=== PATIENT | male | born 1945 | race Caucasian/White ===

== ENCOUNTER → 2020-03-15 | Outpatient (CLI) | payer MEDICARE ==
[2020-03-20 13:06] LABS: M-SPIKE, % Not Observed % (Not Observed); PROTEIN,TOTAL,URINE <4.0 mg/dL (Not Estab.)
== END | disposition home or self-care (01) ==
LOC: LAB SHORT 14:26 → LAB 14:26
PROVIDERS: Internal Medicine
DX: R79.89 Other specified abnormal findings of blood chemistry (principal)
CPT/HCPCS: 81050; 84166; 86335

== ENCOUNTER → 2020-04-26 | Outpatient (CLI) | payer MEDICARE ==
[2020-04-27 13:38] LABS: Stool Occult Blood Guaiac 1 Neg (Neg); Stool Occult Blood Guaiac 2 Neg (Neg)
[2020-04-27 13:39] LABS: Stool Occult Blood Guaiac 3 Neg (Neg)
== END | disposition home or self-care (01) ==
LOC: LAB 13:33 → LAB SHORT 13:33 → LAB FUT 04-21 10:30
PROVIDERS: Internal Medicine
DX: D50.9 Iron deficiency anemia, unspecified (principal)
CPT/HCPCS: 82270

== ENCOUNTER → 2024-11-11 | Outpatient (CLI) | payer MEDICARE ==
[2024-11-12 11:17] LABS: Stool Occult Blood Guaiac 1 Neg (Neg)
[2024-11-12 11:18] LABS: Stool Occult Blood Guaiac 2 Neg (Neg)
[2024-11-12 11:19] LABS: Stool Occult Blood Guaiac 3 Neg (Neg)
== END ==
LOC: LAB SHORT 11:58 → LAB 11:58 → LAB FUT 11-05 11:15
PROVIDERS: Internal Medicine
DX: D64.9 Anemia, unspecified (principal)
CPT/HCPCS: 82272

== ENCOUNTER 2025-07-15 10:47 | Inpatient (IN) | payer MEDICARE ==
[~2025-07-15] VITALS: Ht 170.2 cm; Wt 65.8 kg
[2025-07-15 11:59] LABS: BASOPHILS ABSOLUTE AUTO 0.03 K/mm3 (0.00-0.23); BASOPHILS PERCENT AUTO 0 % (0-2); EOSINOPHILS ABSOLUTE AUTO 0.00 K/mm3 (0.00-0.68); EOSINOPHILS PERCENT AUTO 0 % (0-6); Hematocrit 28.5 % (37.0-53.0); Hemoglobin 9.5 g/dL (13.5-17.5); IMMATURE GRAN ABSOLUTE AUTO 0.03 K/mm3 (0.00-0.10); IMMATURE GRAN PERCENT AUTO 0 % (0-1); LYMPHOCYTES ABSOLUTE AUTO 0.56 K/mm3 (0.84-5.20); LYMPHOCYTES PERCENT AUTO 5 % (21-46); MONOCYTES ABSOLUTE AUTO 1.49 K/mm3 (0.16-1.47); MONOCYTES PERCENT AUTO 13 % (4-13); Mean Corpuscular HGB Conc 33.3 g/dL (31.5-36.5); Mean Corpuscular Volume 89 fL (80-100); NEUTROPHILS ABSOLUTE AUTO 9.74 K/mm3 (1.96-9.15); NEUTROPHILS PERCENT AUTO 82 % (41-73); NRBC ABSOLUTE 0.00 K/mm3 (0.00-0.02); NRBC Auto 0.0 /100 WBC (0.0-0.2); Platelet Count 433 K/mm3 (150-400); RDW Coefficient Variation 14.4 % (11.7-14.2); RDW Standard Deviation 46.5 fL (35.1-46.3)
[2025-07-15] MEDS ORDERED: NS 1,000 ML IV SCH ×2 (12:05→16:45)
[2025-07-15] MEDS ORDERED: PLAVIX75 MG PO (12:18)
[2025-07-15] MEDS ORDERED: SYNTHROID100 M14 PO (12:18)
[2025-07-15] MEDS ORDERED: ADALAT CC PO (12:18)
[2025-07-15] MEDS ORDERED: LISI20 PO (12:19)
[2025-07-15] MEDS ORDERED: INSULIN DE100 UNIT/1 (12:19)
[2025-07-15] MEDS ORDERED: MS CONTIN100 MG PO (12:19)
[2025-07-15] MEDS ORDERED: ATEN50 PO (12:19)
[2025-07-15] MEDS ORDERED: SPIRONOLACTONE50 MG PO (12:20)
[2025-07-15] MEDS ORDERED: NORTRIPTYLINE H2512 PO (12:20)
[2025-07-15] MEDS ORDERED: Simvastatin40 MG PO (12:20)
[2025-07-15] MEDS ORDERED: PANTOPRAZOLE SO40 M2 PO (12:20)
[2025-07-15 12:21] LABS: Alanine Aminotransfer (ALT/SGP 28.0 U/L (12-78); Albumin, Blood 3.1 g/dL (3.4-5.0); Albumin/Globulin Ratio 0.8 (0.8-1.8); Anion Gap 12.0 mmol/L (3-11); Aspartate Aminotrans (AST/SGOT 29.0 U/L (12-37); Bilirubin, Total 0.5 mg/dL (0.1-1.0); Blood Urea Nitrogen 43.0 mg/dL (8-24); CO2, Blood 30.0 mmol/L (21-32); Calcium, Blood 9.0 mg/dL (8.5-10.1); Chloride, Blood 85.0 mmol/L (98-108); Creatinine, Blood 1.78 mg/dL (0.60-1.20); Globulin, Blood 4.0 g/dL (2.2-4.0); Glucose, Blood 245.0 mg/dL (70-99); Potassium, Blood 4.1 mmol/L (3.5-5.5); Sodium, Blood 123.0 mmol/L (136-145); Total Protein, Blood 7.1 g/dL (6.4-8.2)
[2025-07-15] MEDS ORDERED: Ondansetron HCl 2 MG / ML 2ML Vial IV ONE (15:00)
[2025-07-15] MEDS ORDERED: Morphine Sulfate 4 MG/1 ML Injection IV ONE (15:00)
[2025-07-15 15:20] LABS: Source, Urine Clean Catch
[2025-07-15 15:39] LABS: Bilirubin, Urine Neg (Neg); Color, Urine Yellow (P-Yellow); Glucose Qualitative, Urine 1+ (Neg); Ketones, Urine Neg (Neg); Leukocyte Esterase, Urine Neg (Neg); Protein, Urine 1+ (Neg); Specific Gravity, Urine 1.020 (1.003-1.022); Urobilinogen, Urine NORM (Normal)
[2025-07-15 16:13] LABS: Red Blood Cells, Urine 0-2 /hpf (0-2)
[2025-07-15] MEDS ORDERED: Ondansetron HCl 2 MG / ML 2ML Vial IV PRN (16:40)
[2025-07-15] MEDS ORDERED: FLU VACC TS2025(65UP)/MF59C/PF 45 MCG/0.5 ML SYRINGE IM SCH (16:45)
[2025-07-15 20:06] LABS: Hematocrit 25.4 % (37.0-53.0); Hemoglobin 8.9 g/dL (13.5-17.5)
[2025-07-15 20:13] VITALS: BP 111/51
[2025-07-15] MEDS ORDERED: HYDACE10B PO (20:29)
[2025-07-15] MEDS ORDERED: FentaNYL Citrate 50 MCG/ML 2 ML Injection IV PRN (20:45)
[2025-07-15] MEDS ORDERED: HUMALOG KW100 UNIT/1 (22:06)
[2025-07-15] MEDS ORDERED: NIFE90ER PO (22:07)
[2025-07-15] MEDS ORDERED: CYCL10 PO (22:09)
[2025-07-15] MEDS ORDERED: MORP30ER (22:15)
[2025-07-15] MEDS ORDERED: PSYLLIUM FIBER0.4 GM PO (22:18)
[2025-07-15] MEDS ORDERED: HYDROmorphone HCl/Pf 1MG SYR IV ONE (22:25)
[2025-07-15] MEDS ORDERED: Insulin Human Lispro 100 Units/ML 3ML Syringe SC SCH (23:05)
[2025-07-15 23:39] VITALS: BP 102/43
[2025-07-16] MEDS ORDERED: FentaNYL Citrate 50 MCG/ML 2 ML Injection IV PRN (02:10)
[2025-07-16] MEDS ORDERED: Naloxone HCl 0.4MG / ML 1ML Vial IV PRN (02:10)
[2025-07-16 04:01] VITALS: BP 107/54
[2025-07-16 05:04] LABS: BASOPHILS ABSOLUTE AUTO 0.01 K/mm3 (0.00-0.23); BASOPHILS PERCENT AUTO 0 % (0-2); EOSINOPHILS ABSOLUTE AUTO 0.00 K/mm3 (0.00-0.68); EOSINOPHILS PERCENT AUTO 0 % (0-6); Hematocrit 25.9 % (37.0-53.0); Hemoglobin 8.8 g/dL (13.5-17.5); IMMATURE GRAN ABSOLUTE AUTO 0.03 K/mm3 (0.00-0.10); IMMATURE GRAN PERCENT AUTO 0 % (0-1); LYMPHOCYTES ABSOLUTE AUTO 0.36 K/mm3 (0.84-5.20); LYMPHOCYTES PERCENT AUTO 4 % (21-46); MONOCYTES ABSOLUTE AUTO 1.11 K/mm3 (0.16-1.47); MONOCYTES PERCENT AUTO 12 % (4-13); Mean Corpuscular HGB Conc 34.0 g/dL (31.5-36.5); Mean Corpuscular Volume 86 fL (80-100); NEUTROPHILS ABSOLUTE AUTO 7.44 K/mm3 (1.96-9.15); NEUTROPHILS PERCENT AUTO 83 % (41-73); NRBC ABSOLUTE 0.00 K/mm3 (0.00-0.02); NRBC Auto 0.0 /100 WBC (0.0-0.2); Platelet Count 409 K/mm3 (150-400); RDW Coefficient Variation 14.1 % (11.7-14.2); RDW Standard Deviation 44.1 fL (35.1-46.3)
[2025-07-16] MEDS ORDERED: ALPHA LIPOIC A600 MG PO (05:18)
[2025-07-16] MEDS ORDERED: B COMPLEX FORM0.4 MG PO (05:19)
[2025-07-16] MEDS ORDERED: FERROUS GLUCON324 M2 PO (05:20)
[2025-07-16] MEDS ORDERED: MULVITA PO (05:21)
[2025-07-16] MEDS ORDERED: DOCU100 PO (05:22)
[2025-07-16 05:36] LABS: Alanine Aminotransfer (ALT/SGP 24.0 U/L (12-78); Albumin, Blood 2.6 g/dL (3.4-5.0); Albumin/Globulin Ratio 0.7 (0.8-1.8); Anion Gap 11.0 mmol/L (3-11); Aspartate Aminotrans (AST/SGOT 22.0 U/L (12-37); Bilirubin, Total 0.4 mg/dL (0.1-1.0); Blood Urea Nitrogen 44.0 mg/dL (8-24); CO2, Blood 28.0 mmol/L (21-32); Calcium, Blood 8.3 mg/dL (8.5-10.1); Chloride, Blood 91.0 mmol/L (98-108); Creatinine, Blood 1.35 mg/dL (0.60-1.20); Globulin, Blood 3.6 g/dL (2.2-4.0); Glucose, Blood 268.0 mg/dL (70-99); Potassium, Blood 4.0 mmol/L (3.5-5.5); Sodium, Blood 126.0 mmol/L (136-145); Total Protein, Blood 6.2 g/dL (6.4-8.2)
--- NOTE | 2025-07-16 06:32 | NUR ---
ADMISSION AND SHIFT SUMMARY ASSUMED CARE AT 2009. A/Ox4, SOFT BP, OTHER VSS ON RA. CONTINUOUS PULSE OX IN PLACE. NSR ON TELE. PT REPORTS 8-06/17 LOW ABDOMINAL PAIN, MD CONTACTED; PRN FENTANYL OR DILAUDID MINIMALLY EFFECTIVE. CT SCAN COMPLETED OVERNIGHT. NO BM THIS SHIFT; PT REPORTS LAST BM WAS WATERY AND PRIOR TO ADMISSION. UP TO RESTROOM WITH SBA. NPO DIET. PT DENIES NAUSEA, SOB, OTHER COMPLAINTS. PT UNABLE TO RETRIEVE HOME DEGLUDEC; PHARMACY REQUESTED A REPLACEMENT ORDER: 8 UNITS LANTUS. NS RUNNING 75 ML/HR. SAFETY PRECAUTIONS IN PLACE, CALL LIGHT IN REACH.
[2025-07-16 07:36] VITALS: BP 103/50
[2025-07-16] MEDS ORDERED: NS 1,000 ML IV SCH (08:00)
[2025-07-16 12:33] LABS: Ferritin, Serum 24.0 ng/mL (26-388); Total Iron Binding Capacity 227.0 ug/dL (250-450)
[2025-07-16 12:41] LABS: Carcinoembryonic Antigen 11.9 ng/mL (0.0-3.0)
[2025-07-16] MEDS ORDERED: Peg/Electrolytes 4,000 ML BTL PO ONE (12:45)
--- NOTE | 2025-07-16 14:40 | NUR ---
PALLIATIVE CARE ATTEMPTED VISIT: AT 1210 ATTEMPTED TO MAKE VISIT WITH PT. HE WAS SLEEPING AT THIS TIME. SPOKE TO DR. BROWN ABOUT CASE. ACCORDING TO DR. BROWN PT WAS INFORMED OF TEST RESULTS. WILL ATTEMPT VISIT LATER TODAY.
[2025-07-16 16:16] VITALS: BP 109/44
--- NOTE | 2025-07-16 16:43 | NUR ---
SHIFT SUMMARY PATIENT ABLE TO USE BATHROOM AND BSC. GOLYTELY STARTED, PATIENT TOLERATING IT WELL SO FAR, REPORTS NO INCREASE OF NAUSEA OR HICCUPS. PLAN FOR COLONOSCOPY PER DR RAMIREZ IF CAN PREP ADEQUATELY. CONTINUOUS FLUIDS RUNNING. A/O X4. ABLE TO MAKE NEEDS KNOWN. REPORTING HIGH PAIN LEVELS 8-9/10 WITH LITTLE RELIEF 7/10 POST MED. DISCUSSED PAIN REGIMEN WITH DR BROWN AT AM ROUNDS, NO ORDERS RECEIVED.
[2025-07-16 20:49] VITALS: BP 141/61
[2025-07-16] MEDS ORDERED: Insulin Glargine 100 Unit/ML 3 ML SYR SC SCH (21:00)
[2025-07-16] MEDS ORDERED: Misc. Injectable SC SCH (21:00)
[2025-07-16 23:49] VITALS: BP 147/62
[2025-07-17 04:04] VITALS: BP 116/67
[2025-07-17 04:55] LABS: Hematocrit 24.6 % (37.0-53.0); Hemoglobin 8.4 g/dL (13.5-17.5); Mean Corpuscular HGB Conc 34.1 g/dL (31.5-36.5); Mean Corpuscular Volume 85 fL (80-100); NRBC ABSOLUTE 0.00 K/mm3 (0.00-0.02); NRBC Auto 0.0 /100 WBC (0.0-0.2); Platelet Count 296 K/mm3 (150-400); RDW Coefficient Variation 14.3 % (11.7-14.2); RDW Standard Deviation 44.4 fL (35.1-46.3)
[2025-07-17 05:27] LABS: Anion Gap 9.0 mmol/L (3-11); Blood Urea Nitrogen 34.0 mg/dL (8-24); CO2, Blood 30.0 mmol/L (21-32); Calcium, Blood 8.2 mg/dL (8.5-10.1); Chloride, Blood 94.0 mmol/L (98-108); Creatinine, Blood 1.19 mg/dL (0.60-1.20); Glucose, Blood 132.0 mg/dL (70-99); Potassium, Blood 3.8 mmol/L (3.5-5.5); Sodium, Blood 129.0 mmol/L (136-145)
[2025-07-17] MEDS ORDERED: Pantoprazole Sodium 40 MG Injection IV SCH (06:00)
[2025-07-17 07:53] VITALS: BP 121/60
[2025-07-17] MEDS ORDERED: HYDROmorphone HCl/Pf 1MG SYR IV PRN (07:55)
[2025-07-17] MEDS ORDERED: Iron Dextran 50 MG / ML 2ML Vial IV ONE (08:30)
[2025-07-17] MEDS ORDERED: Iron Dextran 975 MG in NS 250 ML IV ONE (09:30)
--- NOTE | 2025-07-17 10:37 | NUR ---
PPN CONSULT PLACED PER DR RAMIREZ VERBAL ORDER, NO COTTON SEED CULLER HERE TODAY. CHARGE MADE AWARE. STATED TO CONTINUE NG SUCTION.
--- NOTE | 2025-07-17 16:05 | NUR ---
PALLIATIVE CARE VISIT: MET WITH PT IN HIS ROOM. PT IS AWAKE AND A/O X 4 AGREEABLE TO VISIT. WE DISCUSSED CODE STATUS, GOC AND SYMPTOM MANAGEMENT. CODE STATUS: PT WISHES TO BE DNR, SELECTIVE TREATMENT. PT STATES HE ALREADY HAS A POLST FORM COMPLETED AND ON FILE WITH HIS PCP STATING DNR. GOC: PT DESIRES TO KNOW IF HE DOES OR DOES NOT HAVE CANCER BEFORE DECIDING WHAT DIRECTION HE WILL GO WITH HIS CARE. HE IS AGREEABLE TO DISCUSSING OPTIONS. WE DISCUSS HOME WITH HOME HEALTH IF HIS SYMPTOMS IMPROVE WELL ENOUGH HE CAN GO HOME. PT STATES HE DOES NOT HAVE FAMILY WHO CAN HELP HIM CARE FOR HIMSELF BUT THAT WOULD BE HIS PREFERENCE. WE DISCUSS OPTIONS IF HE IS DIAGNOSED WITH CANCER. PT IS UNDECIDED AT THIS TIME IF HE WOULD SEEK TREATMENT. HE IS FAMILIAR WITH HOSPICE SERVICES HIS LATE WAS ON HOSPICE. PT WOULD LIKE MORE INFORMATION BEFORE MAKING A DECISION. SYMPTOM MANAGEMENT: PT REPORTS PAIN, NAUSEA, SOB IS MANAGED. PT REPORTS HE IS NOT SLEEPING WELL. HE HAS NEVER TAKEN A SLEEP AID. HE IS AGREEABLE TO TRYING MELATONIN. PT REPORTS HE IS WEAK. HE IS NO LONGER HAVING DIARRHEA/BM'S BUT HAS HAD NO ORAL INTAKE IN SEVERAL DAYS. NG TUBE IN PLACE IS TOLERABLE PER PT. UPDATED PRIMARY RN AND MD. ORDER RECEIVED FROM DR. BROWN FOR MELATONIN 5 MGPO BEDTIME. PROVIDED NECK PILLOW FOR COMFORT.
[2025-07-17 16:08] VITALS: BP 126/56
--- NOTE | 2025-07-17 18:10 | NUR ---
SHIFT SUMMARY PATIENT TOLERATING NG PLACEMENT, REPORTING INCREASED PAIN RELIEF. 6-03/17 PRIOR TO MEDICATION. ONLY ASKING/ACCEPTING PAIN MEDS X1 THIS SHIFT. TOTAL OF 700 OUT THROUGH TUBE. PALLIATIVE ROUNDING AND RESULTED IN CODE STATUS CHANGE TO DNR. NO BM, BUT ENDORSES PASSING GAS. A/O X4. CALL LIGHT IN REACH.
[2025-07-17 19:24] VITALS: BP 108/62
[2025-07-18 00:04] VITALS: BP 122/61
[2025-07-18 04:06] VITALS: BP 124/59
--- NOTE | 2025-07-18 04:48 | NUR ---
ORIENTING NURSE DOCUMENTATION REVIEW: TREATMENTS, MEDICATIONS AND PATIENT CARE PROVIDED TO PATIENT AND DOCUMENTATION ENTERED BY ORIENTING NURSEPUJA, OVERSEEN BY THIS RN.
--- NOTE | 2025-07-18 05:04 | NUR ---
SHIFT SUMMARY NO ACUTE CHANGES OVERNIGHT. NGT TO LOW INTERMITTENT SUCTION DRAINING 300 CC WATERY DARK BROWN STOMACH CONTENT. PAIN CONTROLLED WITH MEDICATION PER NOV. VOIDS CLEAR YELLOW URINE STANDING AT BEDSIDE USING URINAL. NO BM, BOWELS ARE HYPOACTIVE. POWERGLIDE PATENT IN MAIKEL, DRAWS. SPO2 >=91% ON RA. TELEMETRY: SR, BBB, PAC, PVC, RATE OF 78. PENDING RE-EVAL OF CARE MANAGEMENT, AND INITIAL EVAL WITH DIETITIAN TO CONSIDER TPN. CONTINUE TO HOLD PLAVIX PER SURGERY, PENDING REASSESSMENT TODAY FOR POSSIBLE SCOPE IF DECOMPRESSED SUCCESSFULLY. DID NOT PREVIOUSLY TOLERATE GOLYTELY. R ELBOW SKIN TEAR RINSED, REDRESSED WITH BACITRACIN + TEGADERM. PT DECLINES SCDS. NO COVERAGE WITH LISPRO NEEDED OVERNIGHT.
[2025-07-18 05:20] LABS: Hematocrit 23.4 % (37.0-53.0); Hemoglobin 8.0 g/dL (13.5-17.5); Mean Corpuscular HGB Conc 34.2 g/dL (31.5-36.5); Mean Corpuscular Volume 86 fL (80-100); NRBC ABSOLUTE 0.00 K/mm3 (0.00-0.02); NRBC Auto 0.0 /100 WBC (0.0-0.2); Platelet Count 257 K/mm3 (150-400); RDW Coefficient Variation 14.6 % (11.7-14.2); RDW Standard Deviation 45.8 fL (35.1-46.3)
[2025-07-18 05:38] LABS: Anion Gap 15.0 mmol/L (3-11); Blood Urea Nitrogen 28.0 mg/dL (8-24); CO2, Blood 24.0 mmol/L (21-32); Calcium, Blood 8.4 mg/dL (8.5-10.1); Chloride, Blood 98.0 mmol/L (98-108); Creatinine, Blood 1.0 mg/dL (0.60-1.20); Glucose, Blood 154.0 mg/dL (70-99); Potassium, Blood 3.6 mmol/L (3.5-5.5); Sodium, Blood 133.0 mmol/L (136-145)
[2025-07-18 07:33] VITALS: BP 127/58
[2025-07-18] MEDS ORDERED: Metoprolol Tartrate 1 MG/ML 5 ML VIAL IV ONE (07:35)
--- NOTE | 2025-07-18 07:35 | NUR ---
CALL TO DR. BROWN AT 0730 TO NOTIFY OF NEW EPISODE OF A.FLUTTER. DR. BROWN STATED TO GIVE IV METOPROLOL 5MG PUSH X1.
[2025-07-18] MEDS ORDERED: TPN Consult Notification XX ONE (08:55)
[2025-07-18] MEDS ORDERED: Metoprolol Tartrate 1 MG/ML 5 ML VIAL IV PRN (09:20)
[2025-07-18 11:11] VITALS: BP 133/57
--- NOTE | 2025-07-18 15:20 | NUR ---
1330 SPOKE WITH REGARDING PATIENT HAVING SOME WATER. DR. RAMIREZ ADVISED SIPS AND CHIPS TO BE OKAY FOR PATIENT IN LOW VOLUME. NURSE NOTIFY PLACED.
[2025-07-18 15:45] VITALS: BP 118/69
[2025-07-18] MEDS ORDERED: [UNRECOGNIZED DRUG - NUTRITION] IV SCH (17:00)
--- NOTE | 2025-07-18 17:22 | NUR ---
SHIFT SUMMARY PATIENT IS A&OX4, ON ROOM AIR. CONTINENT. TELEMETRY BACK AND FORTH WITH SINUS RYTHYM AND AFIB WITH RVR, AND A FLUTTER THROUGHOUT THE DAY, REACHING HEART RATE OF 150 AND SUSTAINING. MEDICATED WITH IV METOPROLOL 5MG PUSH ONCE IN THE AM AND ONCE IN THE PM. HE IS PAINFUL, MEDICATED PER EMAR. DR. RAMIREZ CONSULTED, EXPLAINED TO PATIENT THE PLAN IS TO GET HIM STABLE ENOUGH FOR SURGERY. GATO QUEVEDO FROM [facility] CONSULTED DUE TO HIGH SUSPICION OF MALIGNANCY. PPN STARTED PER ORDER. HE IS COOPERATIVE WITH CARE AND CALLS APPROPRIATELY. BED IS LOW AND LOCKED, CALL LIGHT IN REACH.
[2025-07-18 19:43] VITALS: BP 122/76
[2025-07-19] VITALS (9 sets, daily range): BP systolic 127–157; BP diastolic 64–83
--- NOTE | 2025-07-19 03:41 | NUR ---
SHIFT SUMMARY ABDOMINAL PAIN INADEQUATELY MANAGED DESPITE REGIMENTED Q2P PRN DILAUDID IV, REPORTEDLY 7-8. PROVIDER ADDS OXYCODONE 5 MG Q4H PRN FOR BETTER MANAGEMENT. PT DEVELOPS CHILLS THIS EVENING, AFEBRILE, NO RESPIRATORY/URINARY/INTEGUMENTARY CONCERN FOR INFECTION. REMAINS PALE, FEELING GENERALLY WEAK AND PUNKY. A&OX4. TELE: SR @ 82 BPM, OCCASIONAL PVCs. INFUSING PPN IN MAIKEL PG. STANDS INDEPENDENTLY AT BEDSIDE FOR URINAL USE. PLAN FOR OUTPT ONCOLOGY ESTABLISHMENT WITH GATO QUEVEDO NP, SURGICAL TO F/U WITH PLAN FOR SCOPE/BX OF COLON MASS. PT PASSING GAS 07/18, THOUGH NO BM YET DURING ADMISSION. TOLERATING WATER SIPS & ICE CHIPS WELL. NG TUBE IN PLACE TO LOW INTERMITTENT SUCTION, BROWN-TINGED, MAINLY WATER OUTPUT. R ELBOW SKIN TEAR DRESSING INTACT.
[2025-07-19 07:54] LABS: Hematocrit 25.5 % (37.0-53.0); Hemoglobin 8.6 g/dL (13.5-17.5); Mean Corpuscular HGB Conc 33.7 g/dL (31.5-36.5); Mean Corpuscular Volume 86 fL (80-100); NRBC ABSOLUTE 0.00 K/mm3 (0.00-0.02); NRBC Auto 0.0 /100 WBC (0.0-0.2); Platelet Count 282 K/mm3 (150-400); RDW Coefficient Variation 14.5 % (11.7-14.2); RDW Standard Deviation 45.2 fL (35.1-46.3)
[2025-07-19 09:05] LABS: Anion Gap 10 mmol/L (3-11); Blood Urea Nitrogen 23 mg/dL (8-24); CO2, Blood 28 mmol/L (21-32); Calcium, Blood 8.1 mg/dL (8.5-10.1); Chloride, Blood 95 mmol/L (98-108); Creatinine, Blood 0.87 mg/dL (0.60-1.20); Glucose, Blood 264 mg/dL (70-99); Phosphorus, Blood 2.3 mg/dL (2.5-4.9); Potassium, Blood 3.4 mmol/L (3.5-5.5); Sodium, Blood 130 mmol/L (136-145); Triglycerides 131 mg/dL (30-160)
[2025-07-19] MEDS ORDERED: Insulin Human Lispro 100 Units/ML 3ML Syringe SC SCH ×2 (12:00→18:00)
--- NOTE | 2025-07-19 18:06 | NUR ---
SHIFT SUMMARY PT AOX4, SBA TO THE BR. INDEPENDENT TO THE BSC. NG TO SUCTION, PPN RUNNING. SBFT DONE TODAY, MULTIPLE BM'S. MEDICATED FOR PAIN AND NAUSEA PER THE EMAR. POSSIBLE SURGICAL PROCEDURE SOON, SEE NOTE. PT AWARE. SEE RHYTHM STRIPS FOR TELE, PROVIDER AWARE. PT REMAINS IN SR AT THIS TIME. NPO. REPOSITIONS SELF IN BED. CALL LIGHT WITHIN REACH, BED LOCKED AND IN THE LOWEST POSITION. WILL REPORT TO ONCOMING NURSE.
[2025-07-19] MEDS ORDERED: Metoprolol Tartrate 1 MG/ML 5 ML VIAL IV ONE ×3 (20:45→22:50)
[2025-07-19] MEDS ORDERED: Insulin Glargine-Yfgn 100 Unit/mL 3 ML SYR SC SCH (21:00)
[2025-07-20] MEDS ORDERED: Insulin Glargine 100 Unit/ML 3 ML SYR SC ONE (01:25)
[2025-07-20 04:00] VITALS: BP 143/64
[2025-07-20 05:55] LABS: Magnesium, Blood 2.1 mg/dL (1.6-2.4); Phosphorus, Blood 2.5 mg/dL (2.5-4.9)
--- NOTE | 2025-07-20 06:29 | NUR ---
PEOPLE MANAGER SUMMARY PT A&OX4, VSS. ABLE TO COMMUNICATE NEEDS APPROPRIATELY. PT HAS BEEN ASLEEP ON AND OFF THIS SHIFT. CHEST RISE/RESPIRATIONS NOTED. PT WAS SCHEDULED TO BE MOVED DOWN TO SURGICAL UNIT. HOWEVER, EARLIER THIS SHIFT, AUTHOR ALERTED BY SALES SERVICE EXECUTIVE OF PT EXPERIENCING A FIB W/ RVR. PT ASYMPTOMATIC, BUT DID STATE NO PRIOR HX OF A FIB UNTIL THIS HOSPITALIZATION. PROVIDER VANESSA NOTIFIED. METOPROLOL IV ORDERED X 3. AFTER 3RD METOPROLOL ADMIN, RN NOTIFIED BY SALES SERVICE EXECUTIVE THAT PT STILL IN A FIB AT 110S. PROVIDER VANESSA NOTIFIED AGAIN AND NO FURTHER ORDERS RECEIVED, EXCEPT CONTINUE TO MONITOR. PER VANESSA, PM MEDS OKAY TO GIVE. PT CURRENTLY RUNNING ST AT 106. PT CONTINUES TO BE NPO, RECEIVING PPN INF AT 94 ML/HR. HGT IN PLACE W/ LOW INT SUCTION, DRAINING CLEAR, YELLOW-GREEN LIQUID FOR MOST OF THE SHIFT. PER NURSE NOTIFY, PHARMACY ASKED ABOUT ADDING BASAL REQUIREMENTS TO TPN. LISA AT PHARMACY UNSURE ON WHAT THAT MEANT. AM RN TO CLARIFY DURING THE DAY. DRESSING ON R ELBOW REMAINS CDI, NOT CHANGED PER WOUND CARE ORDER. BED RAILS UP X 2, BED IN LOWEST POSITION, BED WHEELS LOCKED, PERSONAL BELONGINGS AND CALL LIGHT WITHIN REACH FOR SAFETY.
[2025-07-20 07:37] VITALS: BP 147/100
[2025-07-20 11:35] VITALS: BP 164/80
[2025-07-20 16:04] VITALS: BP 153/77
--- NOTE | 2025-07-20 18:39 | NUR ---
SHIFT SUMMARY PT AOX4, COOPERATIVE, ABLE TO MAKE NEEDS KNOWN. PT IS 1 PERSON ASSIST TO COMMODE TO VOID. PT HAS ONLY URINATED TODAY, NO BM. RUNNING PPN TO MAIKEL, WHICH IS VERY POSITIONAL, NEEDING TRACTION TO INFUSE SMOOTHLY. ON ROOM AIR, ON TELE. NG TUBE STILL INTACT AND CONNECTED TO SUCTION, WHICH IS PATENT. PT DOES EXPRESS PAIN IN ABD, MEDICATING PER EMAR. PER ASHLEY RAHMAN, PT TO HAVE SURGERY ON 07/22/25 IN MORNING, PT SHOULD BE NPO FOR SURGERY. INSTRUCTED PT TO HAVE SIPS AND CHIPS UP UNTIL 2 HOURS BEFORE SURGERY. BED IN LOWEST POSITION, CALL LIGHT WITHIN REACH.
[2025-07-20 19:47] VITALS: BP 149/75
[2025-07-20 23:55] VITALS: BP 142/78
[2025-07-21 04:34] VITALS: BP 156/69
[2025-07-21 05:55] LABS: Hematocrit 24.3 % (37.0-53.0); Hemoglobin 8.0 g/dL (13.5-17.5); Mean Corpuscular HGB Conc 32.9 g/dL (31.5-36.5); Mean Corpuscular Volume 87 fL (80-100); NRBC ABSOLUTE 0.00 K/mm3 (0.00-0.02); NRBC Auto 0.0 /100 WBC (0.0-0.2); Platelet Count 248 K/mm3 (150-400); RDW Coefficient Variation 14.7 % (11.7-14.2); RDW Standard Deviation 46.7 fL (35.1-46.3)
[2025-07-21 06:20] LABS: Anion Gap 11.0 mmol/L (3-11); Blood Urea Nitrogen 20.0 mg/dL (8-24); CO2, Blood 30.0 mmol/L (21-32); Calcium, Blood 7.8 mg/dL (8.5-10.1); Chloride, Blood 94.0 mmol/L (98-108); Creatinine, Blood 0.78 mg/dL (0.60-1.20); Glucose, Blood 301.0 mg/dL (70-99); Magnesium, Blood 1.8 mg/dL (1.6-2.4); Phosphorus, Blood 2.5 mg/dL (2.5-4.9); Potassium, Blood 2.5 mmol/L (3.5-5.5); Sodium, Blood 132.0 mmol/L (136-145)
--- NOTE | 2025-07-21 06:28 | NUR ---
SHIFT SUMMARY: PT IS AOX4. TELE CALLED MULTIPLE TIMES THIS SHIFT TO INFORM THAT PT IS IN AND OUT OF AFIB SEVERAL TIMES. CHARGE NURSE NOTIFIED EVERYTIME. NG TUBE IS PLACED WITH CONTINOUS SUCTION. PT IS NPO AND AWAITING PROCEDURE ON FRIDAY.
[2025-07-21] MEDS ORDERED: Potassium Chl 20MEQ/Water100ML 100 ML IV STA (07:27)
[2025-07-21] MEDS ORDERED: TPN Consult Notification XX ONE (09:50)
[2025-07-21] MEDS ORDERED: Potassium Chl 20MEQ/Water100ML 100 ML IV ONE (10:30)
[2025-07-21 11:15] VITALS: BP 150/64
[2025-07-21 16:07] VITALS: BP 151/70
[2025-07-21] MEDS ORDERED: Morphine Sulfate 20 MG/1ML 1 ML Oral Syringe PO PRN (16:55)
[2025-07-21] MEDS ORDERED: [UNRECOGNIZED DRUG - NUTRITION] IV SCH (17:00)
[2025-07-21 19:39] VITALS: BP 144/74
[2025-07-21 19:42] LABS: Anion Gap 8.0 mmol/L (3-11); Blood Urea Nitrogen 20.0 mg/dL (8-24); CO2, Blood 33.0 mmol/L (21-32); Calcium, Blood 7.9 mg/dL (8.5-10.1); Chloride, Blood 95.0 mmol/L (98-108); Creatinine, Blood 0.78 mg/dL (0.60-1.20); Glucose, Blood 254.0 mg/dL (70-99); Potassium, Blood 3.3 mmol/L (3.5-5.5); Sodium, Blood 133.0 mmol/L (136-145)
--- NOTE | 2025-07-21 20:06 | NUR ---
SUMMARY- PT A/O X4, USES CALL LIGHT FOR SBA TO BSC. PT AMBULATES INDEPENDANT, WEAKNESS BUT ADQ STRENGTH FOR SHORT DISTANCE. PT TOLERATING PPN, BLOOD SUGAR CHECKS Q6. K+ REPLACEMENT GIVEN TODAY FOR LOW K 2.5, REDRAW AT 1900 FOR F/U. PT HAS LOW ABD PAIN RANGE FROM 7-9 TODAY, DILAUDID IV HELPFUL BREIFLY BUT RARELY PAIN BELOW A 7/10. NOTED ON PT'S HX, SEAPORT PLANNING MANAGER MS CONTIN USE, 100MG AM AND 130MG PM FOR CHRONIC BACK PAIN FROM TRAIN ACCITENT 50 YE[address] AGO[address] CALL TO [address] JUSTIN RELATED TO PAIN ISSUES. WILL USE ROXONOL, WOULD BE UNABLE TO TAKE CONTIN DURING NPO/NG TUBE UNTIL AFTER SURGERY SCHEDULED TOMORROW AND ND DC'D. NG TUBE TO LIDEBRA. PUTTING OUT LIGHT OLIVE. PT TAKING IN SIPS AND CHIPS. NC CLAMPED WHILE TAKING AM MEDS. REPORTED TO NOC DIMAS KIM.
[2025-07-22] VITALS (26 sets, daily range): BP systolic 113–172; BP diastolic 57–121
[2025-07-22 04:50] LABS: BASOPHILS ABSOLUTE AUTO 0.02 K/mm3 (0.00-0.23); BASOPHILS PERCENT AUTO 0 % (0-2); EOSINOPHILS ABSOLUTE AUTO 0.09 K/mm3 (0.00-0.68); EOSINOPHILS PERCENT AUTO 1 % (0-6); Hematocrit 24.1 % (37.0-53.0); Hemoglobin 8.0 g/dL (13.5-17.5); IMMATURE GRAN ABSOLUTE AUTO 0.09 K/mm3 (0.00-0.10); IMMATURE GRAN PERCENT AUTO 1 % (0-1); LYMPHOCYTES ABSOLUTE AUTO 1.20 K/mm3 (0.84-5.20); LYMPHOCYTES PERCENT AUTO 10 % (21-46); MONOCYTES ABSOLUTE AUTO 0.79 K/mm3 (0.16-1.47); MONOCYTES PERCENT AUTO 7 % (4-13); Mean Corpuscular HGB Conc 33.2 g/dL (31.5-36.5); Mean Corpuscular Volume 87 fL (80-100); NEUTROPHILS ABSOLUTE AUTO 9.53 K/mm3 (1.96-9.15); NEUTROPHILS PERCENT AUTO 81 % (41-73); NRBC ABSOLUTE 0.00 K/mm3 (0.00-0.02); NRBC Auto 0.0 /100 WBC (0.0-0.2); Platelet Count 238 K/mm3 (150-400); RDW Coefficient Variation 14.6 % (11.7-14.2); RDW Standard Deviation 45.9 fL (35.1-46.3)
[2025-07-22 05:11] LABS: Alanine Aminotransfer (ALT/SGP 39.0 U/L (12-78); Albumin, Blood 2.3 g/dL (3.4-5.0); Albumin/Globulin Ratio 0.8 (0.8-1.8); Anion Gap 5.0 mmol/L (3-11); Aspartate Aminotrans (AST/SGOT 37.0 U/L (12-37); Bilirubin, Total 0.3 mg/dL (0.1-1.0); Blood Urea Nitrogen 20.0 mg/dL (8-24); CO2, Blood 35.0 mmol/L (21-32); Calcium, Blood 8.1 mg/dL (8.5-10.1); Chloride, Blood 96.0 mmol/L (98-108); Creatinine, Blood 0.83 mg/dL (0.60-1.20); Globulin, Blood 2.9 g/dL (2.2-4.0); Glucose, Blood 308.0 mg/dL (70-99); Potassium, Blood 3.0 mmol/L (3.5-5.5); Sodium, Blood 133.0 mmol/L (136-145); Total Protein, Blood 5.2 g/dL (6.4-8.2)
--- NOTE | 2025-07-22 05:32 | NUR ---
PHARMACY CONSULTED ON Y SITING IV KCL TO RUN CONCURRENTLY WITH TPN AND POTASSIUM IS SMALL AND WILL NOT EFFECT THE FILTER RUNNING TPN.
--- NOTE | 2025-07-22 05:35 | NUR ---
PT POTASSIUM 3.0 THIS AM, HOSPITALIST NOTIFIED AND ORDER FOR 40 MEQ IV X 1 ORDERED.
--- NOTE | 2025-07-22 05:48 | NUR ---
SHIFT SUMMARY NOC PT A/O X 4. PLEASANT AND COOPERATIVE WITH CARE. VSS. Q6H CBG'S 268, 348, WITH COVERAGE PROVIDED PER SLIDING SCALE. NGT IN R NARE DRAINING CLEAR YELLOW/GREEN OUTPUT. POWERGLIDE IN MAIKEL INFUSING PPN DUE TO NPO STATUS BESIDE RX AND SIPS/CHIPS. PT WILL BE NPO OF BREAKFAST FOR EXTENDED R HEMICOLECTOMY AND ILEOCOLIC ANASTOMOSIS TODAY. PT POSTASSIUM INCREASED TO 3.3 AFTER REPLACEMENT, THEN 3.0 THIS AM AND 40 MEQ IV KCL X 1 ORDERED. PT ON TELE SINUS/BBB IN 70'S. PT ABD PAIN BEING MANAGED PER EMAR. PT CURRENTLY RESTING WITH BED IN LOWEST POSITION, AND CALL LIGHT WITHIN REACH.
[2025-07-22] MEDS ORDERED: Ampicillin Sod/Sulbactam Sod 3 GM in NS 100 ML IV SCH ×2 (12:30→19:00)
--- NOTE | 2025-07-22 13:00 | NUR ---
PT INTO SDS VIA LUCIANO. PT HAS NG IN PLACE Patient confirms NPO status and agrees with scheduled surgery. History, Chart, Medications and Allergies reviewed before start of procedure.Pre-Op teaching done. Pt verbalizes understanding.
[2025-07-22] MEDS ORDERED: Bupivacaine 0.5% HCl 5 MG/ML 30MLVIAL ONE (13:40)
[2025-07-22] MEDS ORDERED: Etomidate 2MG / ML 10ML Vial ONE (13:50)
[2025-07-22] MEDS ORDERED: Albumin (Human) 12.5gm/250ml 500 ML IV ONE (13:50)
[2025-07-22] MEDS ORDERED: FentaNYL Citrate 50 MCG/ML 2 ML Injection ONE ×4 (14:30→18:01)
[2025-07-22] MEDS ORDERED: Rocuronium Bromide 10 MG/ML 5ML Injection IV ONE (14:39)
[2025-07-22] MEDS ORDERED: Dexamethasone Sod Phos 10 MG/ML 1ML VIAL ONE (14:39)
[2025-07-22] MEDS ORDERED: Metoclopramide HCl 5MG / ML 2ML Vial ONE (14:39)
[2025-07-22] MEDS ORDERED: Ondansetron HCl 2 MG / ML 2ML Vial ONE (14:39)
[2025-07-22] MEDS ORDERED: HYDROmorphone HCl/Pf 1MG SYR IV PRN ×2 (14:50)
[2025-07-22] MEDS ORDERED: Albuterol 2.5 MG/3 ML VIAL INH PRN (14:50)
[2025-07-22] MEDS ORDERED: ePHEDrine Sulfate 50 MG/ML 1ML Injection IV PRN (14:50)
[2025-07-22] MEDS ORDERED: FentaNYL Citrate 50 MCG/ML 2 ML Injection IV PRN ×2 (14:50)
[2025-07-22] MEDS ORDERED: Ondansetron HCl 2 MG / ML 2ML Vial IV PRN (14:50)
[2025-07-22] MEDS ORDERED: Sugammadex Sodium 200 MG/2ML SDV (100 MG/ML) ONE (17:28)
[2025-07-22] MEDS ORDERED: HYDROmorphone HCl/Pf 1MG SYR ONE ×3 (17:38→17:56)
[2025-07-22] MEDS ORDERED: Ketorolac Tromethamine 30mg Vial ONE (17:41)
[2025-07-22] MEDS ORDERED: Morphine Sulfate 4 MG/1 ML Injection ONE (18:05)
[2025-07-22] MEDS ORDERED: Morphine Sulfate 10 MG/ML 1MLSYR IV PRN ×2 (18:10→18:25)
--- NOTE | 2025-07-22 18:52 | NUR ---
TELE RECONNECTED AND VERIFIED
--- NOTE | 2025-07-22 19:07 | NUR ---
POST OP S/P SB RESECTION. MIDLINE ABD PREVENA WOUND VAC IN PLACE-CDI AND COMPRESSED. PT REPORTS ABD PAIN--MEDICATED IN PACU AND KPAD PLACED TO ABD FOR COMFORT. DENIES N/V. HOSKINS IN PLACE WITH CLEAR YELLOW URINE PRESENT. CONT BIOX ON. ON 2L O2 VIA NC SATTING >95%. POST OP VSS AND IN PROGRESS. ICE CHIP GIVEN TO PT. PT AWAKENS APPROPRIATELY WITH VERBAL STIMULI AND ANSWERS QUESTIONS APPROPRIATELY. CALL LIGHT WITHIN REACH.
--- NOTE | 2025-07-22 19:20 | NUR ---
TELE NOTIFIED THIS RN OF 10 BEAT RUN OF MARY. PT ASLEEP AND ASYMPTOMATIC. VSS. NOTIFIED HOSPITALIST. NO NEW ORDERS. CONTINUE TO MONITOR.
[2025-07-22] MEDS ORDERED: MORPHINE SULFATE 100 MG PO SCH (21:00)
--- NOTE | 2025-07-22 23:44 | NUR ---
PHYSICIAN COMMUNICATION/TELE CHANGES TELE INFORMED CHARGE ALISON Potter REGARDING PT HAVING WAP W/PVC SINCE BEGINNING OF SHIFT, NONE NOTED ON DAY SHIFT PER REPORT. PT GOES BETWEEN NSR-ST THEN WAP PER MEDICAL OFFICE TECHNOLOGIST. VS TAKEN & STABLE, PT DENIES CP, PRESSURE OR DYSPNEA. APPROX 2330 TELE CALLED AGAIN REPORTING HR TACHY TO 150'S FOR 7B & 4B RUN. MYSELF & ALISON DID EKG ON PT, IT STATED UNDETERMINED RHYTHM. WHILE DOING EKG PT STATED HE WANTED CHEST COMPRESSIONS & CPR PERFORMED WHILE IN HOSPITAL, BUT DID NOT WANT TO BE PLACED ON LIFE SUPPORT. INFORMED KAMERON Freed OF TELE CHANGES & HE ORDERED A 1x DOSE OF 25MG METOPROLOL TARTRATE & CHANGED PT TO DNI.
[2025-07-23 00:45] VITALS: BP 128/75
[2025-07-23 03:33] VITALS: BP 134/79
[2025-07-23 03:58] LABS: Hematocrit 29.4 % (37.0-53.0); Hemoglobin 9.5 g/dL (13.5-17.5); Mean Corpuscular HGB Conc 32.3 g/dL (31.5-36.5); Mean Corpuscular Volume 90 fL (80-100); NRBC ABSOLUTE 0.00 K/mm3 (0.00-0.02); NRBC Auto 0.0 /100 WBC (0.0-0.2); Platelet Count 248 K/mm3 (150-400); RDW Coefficient Variation 15.3 % (11.7-14.2); RDW Standard Deviation 47.4 fL (35.1-46.3)
[2025-07-23 04:26] LABS: Albumin, Blood 2.4 g/dL (3.4-5.0); Anion Gap 8 mmol/L (3-11); Blood Urea Nitrogen 22 mg/dL (8-24); CO2, Blood 28 mmol/L (21-32); Calcium, Blood 7.8 mg/dL (8.5-10.1); Chloride, Blood 99 mmol/L (98-108); Creatinine, Blood 0.89 mg/dL (0.60-1.20); Glucose, Blood 338 mg/dL (70-99); Magnesium, Blood 1.8 mg/dL (1.6-2.4); Phosphorus, Blood 3.2 mg/dL (2.5-4.9); Potassium, Blood 3.4 mmol/L (3.5-5.5); Sodium, Blood 132 mmol/L (136-145)
[2025-07-23] MEDS ORDERED: FentaNYL Citrate 50 MCG/ML 2 ML Injection IV PRN (05:15)
[2025-07-23] MEDS ORDERED: Insulin Glargine 100 Unit/ML 3 ML SYR SC SCH ×2 (05:15→21:00)
--- NOTE | 2025-07-23 06:55 | NUR ---
SHIFT SUMMARY AOX4. POD1-SB RESECTION. MIDLINE PREVENA COMPRESSED C/D/I. PT REPORTS MINIMAL TO NO PAIN RELIEF, RATES PAIN 8-9/10 CONSTANTLY EVEN WHEN EYES CLOSING WHILE TALKING TO STAFF & JOKING AROUND. MEDICATED 2x W/1MG IV DILAUDID (STATES MIN RELIEF), HOME DOSE SCHEDULED 130MG MS CONTIN, 1x 5MG PO ROXANOL (NO RELIEF). INFORMED DR GREENE OF THE INABILITY TO CONTROL PAIN AND HE ORDERED 25-50MCG IV FENTANYL, MEDICATED PT W/50MCG FENTANYL & PT STATED NO RELIEF EVEN WHILE GETTING CONFUSED MID CONVERSATION ASKING THIS NURSE "WHAT WHERE YOU ASKING ME?". TELE RHYTHM WAP W/PVC HR LOW 100'S, IN BETWEEN NSR TO ST. PT HAD 1 EPISODE 9B RUN SVT @0045, PT JUST RECIEVED 25 METOPROLOL TARTRATE & PEAK MED HADNT TAKEN AFFECT. NO FURTHER TELE RYTHM CHANGES POST METOPROLOL. DENIES DYSPNEA, N/V, OR CP. REPORTS DISCOMFORT W/HOSKINS. HOSKINS DRAINING CLEAR YELLOW TO GRAVITY. CALL LIGHT IN REACH & PT ABLE TO MAKE NEEDS KNOWN.
[2025-07-23 07:17] VITALS: BP 114/66
[2025-07-23] MEDS ORDERED: TPN Consult Notification XX ONE (09:25)
[2025-07-23] MEDS ORDERED: Enoxaparin 40 MG/0.4 ML SYR SC SCH (12:00)
[2025-07-23 15:21] VITALS: BP 113/58
[2025-07-23] MEDS ORDERED: [UNRECOGNIZED DRUG - NUTRITION] IV SCH (17:00)
[2025-07-23] MEDS ORDERED: Dextrose 50% 50 ML Vial ONE (18:32)
--- NOTE | 2025-07-23 18:52 | NUR ---
SHIFT SUMMARY POD1 EXLAP WITH R VITOR COLLECTOMY, A/OX4, VSS THOUGH HE DID HAVE A CRITICALLY LOW CBG AT HIS 1800 CHECK. PT DID NOT APPEAR TO BE HYPOGLYCEMIC HE WAS A/O AND TALKING WITH STAFF, HE WAS GIVEN APPLE JUICE TO DRINK AND HE WAS READING THE NUTRITION LABEL OF THE CLEAR ENSURE WHILE HE WAS DRINKING. HIS PPN HAD BEEN PAUSED FOR ABOUT 4.5 HOURS WHILE HIS ABX AND POTASSIUM WERE INFUSING WHICH CONTRIBUTED TO A LOWER CBG. PER MD, AN AMP OF D50 WAS GIVEN AFTER SEVERAL REPEAT CBG'S WAS STILL SHOWING HIM BEING LOW. PT CONTINUES TO BE A/O T/O THE WHOLE PROCESS. PICC LINE PLACED PER SURGERY TO CHANGE HIS PPN TO CPN. NO OTHER EVENTS THIS SHIFT, CALL LIGHT IN REACH.
[2025-07-23 19:40] VITALS: BP 139/61
[2025-07-24] VITALS (7 sets, daily range): BP systolic 115–160; BP diastolic 49–120
[2025-07-24 04:17] LABS: Hematocrit 23.2 % (37.0-53.0); Hemoglobin 7.6 g/dL (13.5-17.5); Mean Corpuscular HGB Conc 32.8 g/dL (31.5-36.5); Mean Corpuscular Volume 91 fL (80-100); NRBC ABSOLUTE 0.00 K/mm3 (0.00-0.02); NRBC Auto 0.0 /100 WBC (0.0-0.2); Platelet Count 206 K/mm3 (150-400); RDW Coefficient Variation 15.9 % (11.7-14.2); RDW Standard Deviation 49.3 fL (35.1-46.3)
--- NOTE | 2025-07-24 04:25 | NUR ---
PT 80YO M, DNI, POD1 EXLAP W/R HEMIOLECCTOMY ADMITTED 07/15, PICC INFUSING TPN, A&OX4 PT CONTINUES TO REPORT MINIMAL TO NO PAIN RELIEF, PT RECEIVED MS CONTIN 130, DILAUDID 1MG X2, FENTANYL 50MCG X1, PT STATES RESTING HELPS BUT PAIN REMAINS, MAKES NEEDS KNOWN APPROPERIATELY DENIES SHORTNESS OF BREATHE, CP AND N/V, BED LOWERED CALL LIGHT WITHIN REACH.
[2025-07-24 04:45] LABS: Magnesium, Blood 1.6 mg/dL (1.6-2.4)
[2025-07-24 06:38] LABS: Albumin, Blood 1.8 g/dL (3.4-5.0); Anion Gap 5 mmol/L (3-11); Blood Urea Nitrogen 22 mg/dL (8-24); CO2, Blood 33 mmol/L (21-32); Calcium, Blood 7.3 mg/dL (8.5-10.1); Chloride, Blood 100 mmol/L (98-108); Creatinine, Blood 0.87 mg/dL (0.60-1.20); Glucose, Blood 335 mg/dL (70-99); Phosphorus, Blood 1.9 mg/dL (2.5-4.9); Potassium, Blood 3.5 mmol/L (3.5-5.5); Sodium, Blood 134 mmol/L (136-145)
[2025-07-24] MEDS ORDERED: Ketorolac Tromethamine 15mg Vial IV PRN (09:00)
[2025-07-24] MEDS ORDERED: Insulin Glargine 100 Unit/ML 3 ML SYR SC SCH (09:00)
[2025-07-24] MEDS ORDERED: Mag Sulfate 1 GM/D5% 100ML 100 ML IV STA (09:46)
--- NOTE | 2025-07-24 17:58 | NUR ---
DAY SHIFT SUMMARY SANAZ DERAS" REMAINED ORIENTED X4 T/O SHIFT. FORGETFUL AT TIMES BUT REORIENTED WELL. PLEASANT AND COOPERATIVE. CPN TO JIGNA TL PICC, PATENT WITH GOOD BLOOD RETURN. CHRONIC PAIN TO BACK AND ACUTE PAIN TO ABD, ON MORPHINE PO AT HOME, TOLERATED DILAUDID IV FOR BREAKTHROUGH. MID ABD WOUND VAC CDI, NO DRAINAGE IN CANNISTER, ABD ROUNDED, +BS, HYPOACTIVE. SR/PVCS ON TELEMETRY. RUNS OF VTACH X1 @ 1O BEATS, NOTIFIED DR. JUSTIN IN ROOM AND MAG DRAWN WITH AM LABS. REPLACEMENT GIVEN OF 1G - SEE EMAR FOR DETAILS. ADEQUATE UOP, CLEAR YELLOW. PLAN FOR 2-3 DAYS MORE OF CPN PER DR. WEBB. GLUCOSE BETTER CONTROLLED THIS EVENING IN 100S. NO N/V.
--- NOTE | 2025-07-24 22:19 | NUR ---
CALL TO HOSPITALIST. CALL PLACED TO CLARIFY INSULIN DOSE OF LONG ACTING GLARGINE 20 UNITS. PT HAS HX OF LOW BLOOD SUGARS MULTIPLE BELOW 50 MG/DL THIS ADMIT. PT IS ON Q6 BLOOD SUGAR CHECKS. ORDERS TO CONTINUE WITH 20 UNITS OF GLARGINE ORDERED.
--- NOTE | 2025-07-24 23:00 | NUR ---
INSULIN UPDATE. PT CONCERNED ABOUT LOW BLOOD SUGARS AND REQUESTS TO ONLY TAKE 10 UNITS OF LONG ACTING INSULIN INSTEAD OF ORDERED 20 UNITS. EDUCATION PROVIDED TO PATIENT AND 10 UNITS GIVEN PER EMAR. DISCUSSED WITH NUTRITION AIDES TEACHER.
[2025-07-25] VITALS (7 sets, daily range): BP systolic 112–134; BP diastolic 46–56
--- NOTE | 2025-07-25 01:34 | NUR ---
INSULIN SLIDE SCALE UPDATE. PT CONTINUES TO BE CONCERNED ABOUT LOW BLOOD SUGARS. PT ON Q6 HOUR BLOOD SUGAR CHECKS/COVERAGE, 3 UNITS OF COVERAGE INDICATED FOR CHEM BG OF 196MG/DL. PT DECLINES COVERAGE AT THIS TIME. CPN RUNNING PER EMAR. DISCUSSED WITH MIDDLEWARE ARCHITECT.
--- NOTE | 2025-07-25 04:47 | NUR ---
SHIFT SUMMARY NOC. PT POD 2 FOR BOWEL RESECTION. MIDLINE INCISION IS COMPRESSED AND C/D/I WITH WOUND VAC IN PLACE. PT MEDICATED FOR PAIN WITH SOME REPORTED PAIN RELIEF. PT VOIDING URINE AND TOLERATING CLEAR LIQUIDS. PLEASE SEE PREV NOTES REGARDING CHEM BG AND INSULIN. PT MAKES NEEDS KNOWN, IS FORGETFUL AT TIMES BUT IS A/OX4. CALL LIGHT IN REACH.
[2025-07-25 05:34] LABS: BASOPHILS ABSOLUTE AUTO 0.02 K/mm3 (0.00-0.23); BASOPHILS PERCENT AUTO 0 % (0-2); EOSINOPHILS ABSOLUTE AUTO 0.50 K/mm3 (0.00-0.68); EOSINOPHILS PERCENT AUTO 4 % (0-6); Hematocrit 23.5 % (37.0-53.0); Hemoglobin 7.9 g/dL (13.5-17.5); IMMATURE GRAN ABSOLUTE AUTO 0.09 K/mm3 (0.00-0.10); IMMATURE GRAN PERCENT AUTO 1 % (0-1); LYMPHOCYTES ABSOLUTE AUTO 1.54 K/mm3 (0.84-5.20); LYMPHOCYTES PERCENT AUTO 12 % (21-46); MONOCYTES ABSOLUTE AUTO 0.69 K/mm3 (0.16-1.47); MONOCYTES PERCENT AUTO 5 % (4-13); Mean Corpuscular HGB Conc 33.6 g/dL (31.5-36.5); Mean Corpuscular Volume 89 fL (80-100); NEUTROPHILS ABSOLUTE AUTO 9.88 K/mm3 (1.96-9.15); NEUTROPHILS PERCENT AUTO 78 % (41-73); NRBC ABSOLUTE 0.00 K/mm3 (0.00-0.02); NRBC Auto 0.0 /100 WBC (0.0-0.2); Platelet Count 220 K/mm3 (150-400); RDW Coefficient Variation 15.8 % (11.7-14.2); RDW Standard Deviation 49.3 fL (35.1-46.3)
[2025-07-25 06:05] LABS: Albumin, Blood 1.6 g/dL (3.4-5.0); Anion Gap 7 mmol/L (3-11); Blood Urea Nitrogen 27 mg/dL (8-24); CO2, Blood 31 mmol/L (21-32); Calcium, Blood 7.5 mg/dL (8.5-10.1); Chloride, Blood 96 mmol/L (98-108); Creatinine, Blood 0.90 mg/dL (0.60-1.20); Glucose, Blood 225 mg/dL (70-99); Magnesium, Blood 2.1 mg/dL (1.6-2.4); Phosphorus, Blood 2.8 mg/dL (2.5-4.9); Potassium, Blood 3.2 mmol/L (3.5-5.5); Sodium, Blood 131 mmol/L (136-145)
--- NOTE | 2025-07-25 09:13 | NUR ---
THIS PRIMER INSERTING MACHINE OPERATOR OFFERED TO GET PATIENT UP TO CHAIR.PATIENT REQUEST TO GET UP FOR LUNCH AND REST NOW.RN NOTIFIED.
--- NOTE | 2025-07-25 16:45 | NUR ---
SHIFT SUMMARY PT IS A/OX4. TOLERATING GETTING UP TO CHAIR FOR MEALS, SBA. DENIES N/V. PT CLAIMS BURPING SOME, BUT NOT PASSING GAS YET. VOIDING WELL. MIDLINE DRESSING C/D/I, SUCTION IN PLACE W/ WOUND VAC. PT REPORTS PENILE AND SCROTUM ENLARGEMENT, APPEARS TO BE SLIGHTLY RED AND SWOLLEN. NO NEW ORDERS AT THIS TIME.
--- NOTE | 2025-07-25 19:05 | NUR ---
CPN ADMINISTERED TO PT AT 1745. UNABLE TO DOCUMENT DUE TO TECHNOLOGICAL DIFFICULTIES. COMPUTER CRASHED MID DOCUMENTATION. UNABLE TO DOCUMENT INSULIN, DID NOT GIVE. CNI.
[2025-07-26 04:50] VITALS: BP 149/76
[2025-07-26 05:08] LABS: Hematocrit 26.4 % (37.0-53.0); Hemoglobin 8.7 g/dL (13.5-17.5); Mean Corpuscular HGB Conc 33.0 g/dL (31.5-36.5); Mean Corpuscular Volume 91 fL (80-100); NRBC ABSOLUTE 0.00 K/mm3 (0.00-0.02); NRBC Auto 0.0 /100 WBC (0.0-0.2); Platelet Count 323 K/mm3 (150-400); RDW Coefficient Variation 16.0 % (11.7-14.2); RDW Standard Deviation 51.5 fL (35.1-46.3)
[2025-07-26 05:38] LABS: Albumin, Blood 1.9 g/dL (3.4-5.0); Anion Gap 6 mmol/L (3-11); Blood Urea Nitrogen 33 mg/dL (8-24); CO2, Blood 31 mmol/L (21-32); Calcium, Blood 7.9 mg/dL (8.5-10.1); Chloride, Blood 98 mmol/L (98-108); Creatinine, Blood 0.93 mg/dL (0.60-1.20); Glucose, Blood 181 mg/dL (70-99); Magnesium, Blood 2.2 mg/dL (1.6-2.4); Phosphorus, Blood 3.2 mg/dL (2.5-4.9); Potassium, Blood 4.0 mmol/L (3.5-5.5); Sodium, Blood 131 mmol/L (136-145)
--- NOTE | 2025-07-26 05:43 | NUR ---
SHIFT SUMMARY: PATIENT IS POD 4 OF BOWEL RESECTION WITHOUT OSTOMY. PER [email or web address] M'SAM PATIENT HAS BEEN SINUS RHYTHM WITH HR IN THE 80'S BPM. PATIENT AT THE BEGINNING OF THE SHIFT WAS INTERMITTENTLY DESATTING TO 87-86% ON ROOM AIR WHEN SLEEPING PER CONTINUOUS PULSE OX ON. PATIENT THEN WAS PLACED ON 2L OXYGEN VIA NC IN WHICH PATIENTS CONTINUOUS PULSE OX SUSTAINED >90% SPO2 WHILE SLEEPING THIS SHIFT. WHEN PATIENT IS AWAKE HE IS ON ROOM AIR WITH >90% SPO2. PAIN IS MANAGED WITH PRN PAIN MEDS PER EMAR. PATIENTS ABD MIDLINE INCISION WITH WOUND VAC FOAM COMPRESSED WITH DRESSING C/D/I AT THIS TIME. PATIENT REPORTS "UNCOMFORTABLE" SWELLING ON HIS PENIS - IT IS NOTED PATIENTS PENIS IS MILDLY SWOLLEN - HOWEVER, HE HAS BEEN ABLE TO VOID THROUGHOUT THE NIGHT VIA URINAL AT BEDSIDE. PATIENT IS TOLERATING PO INTAKE AND IS PASSING FLATUS. NO BM DURING THIS SHIFT. PATIENT IS A&OX4. HE IS ABLE TO MAKE NEEDS KNOWN AND USES THE CALL LIGHT APPROPRIATELY. PATIENT IS LAYING IN BED WITH CALL LIGHT IN REACH.
[2025-07-26 07:13] VITALS: BP 116/48
[2025-07-26 10:49] VITALS: BP 126/44
[2025-07-26] MEDS ORDERED: Magnesium Hydroxide Conc 10 ML UDC PO PRN (12:20)
[2025-07-26] MEDS ORDERED: Polyethylene Glycol 3350 17 gm PO PRN (13:00)
[2025-07-26] MEDS ORDERED: Polyethylene Glycol 3350 17 gm PO ONE (13:00)
--- NOTE | 2025-07-26 15:20 | NUR ---
REVIEWED CASE WITH PRIMARY RN. RN REPORTS SHE HAS BEEN IN CONTACT WITH PROVIDER, WORKING ON SYMPTOM MGMT FOR PAIN, DIET AND UPDATES ON HIS GI NEEDS. RN DENIES ANY ACUTE NEEDS AT THIS TIME. PC TO REMAIN AVAILABLE NEEDED.
[2025-07-26 15:53] VITALS: BP 151/40
[2025-07-26] MEDS ORDERED: Insulin Human Lispro 100 Units/ML 3ML Syringe SC SCH (16:30)
--- NOTE | 2025-07-26 18:13 | NUR ---
SHIFT SUMMARY POD 4 SMALL BOWEL RESECTION + R HEMICOLECTOMY PT IS A/OX4. PT AMBULATED MORE TODAY, REPORTING INCREASED PAIN W/ AMBULATION. TOLERATING FULL LIQUID DIET. PT DENIES N/V. PAIN MANAGED PER EMAR. PENIS AND SCROTUM STILL SWOLLEN, PT STATES IT REQUIRES HIM TO STAND TO VOID NOW. VOIDING WELL. PT IS A SBA DUE TO CORD/LINE MANAGEMENT. NO ACUTE CHANGES. VSS. CALL LIGHT IN REACH.
[2025-07-26 21:35] VITALS: BP 125/53
[2025-07-27 00:04] VITALS: BP 145/58
[2025-07-27 04:20] VITALS: BP 114/49
--- NOTE | 2025-07-27 05:37 | NUR ---
SHIFT SUMMARY A/OX4, IND WITH TRANSFERS TO BSC. C/O SCROTUM SWELLING AND PAIN TO ABD, MEDICATED PER EMAR. MIDLINE ABD WOUND VAC C/D/I. CPN INFUSING TO PICC LINE. NO ACUTE CHANGES AT THIS TIME.
[2025-07-27 06:13] LABS: Anion Gap 8.0 mmol/L (3-11); Blood Urea Nitrogen 43.0 mg/dL (8-24); CO2, Blood 28.0 mmol/L (21-32); Calcium, Blood 8.0 mg/dL (8.5-10.1); Chloride, Blood 97.0 mmol/L (98-108); Creatinine, Blood 1.01 mg/dL (0.60-1.20); Glucose, Blood 292.0 mg/dL (70-99); Magnesium, Blood 2.2 mg/dL (1.6-2.4); Phosphorus, Blood 3.5 mg/dL (2.5-4.9); Potassium, Blood 4.5 mmol/L (3.5-5.5); Sodium, Blood 128.0 mmol/L (136-145)
[2025-07-27 07:07] VITALS: BP 125/60
[2025-07-27] MEDS ORDERED: TPN Consult Notification XX ONE (09:25)
[2025-07-27 14:30] VITALS: BP 115/64
[2025-07-27] MEDS ORDERED: [UNRECOGNIZED DRUG - NUTRITION] IV SCH (17:00)
--- NOTE | 2025-07-27 17:03 | NUR ---
SHIFT SUMMARY PT IS A/OX4. VSS. NO TELE EVENTS. IND IN ROOM.DR WEBB SPOKE W/ PT REGARDING PATHOLOGY RESULTS. AMBULATED HALLS SOME TODAY. VOIDING WELL, PT HAD MULTIPLE BOWEL MOVEMENTS TODAY. SCROTUM AND PENILE SWELLING DECREASED TODAY. NO ACUTE CHANGES. CALL LIGHT IN REACH, BED IN LOWEST POSITION.
[2025-07-27 20:04] VITALS: BP 119/49
[2025-07-27 23:58] VITALS: BP 158/51
[2025-07-28 05:24] VITALS: BP 130/35
[2025-07-28 05:27] VITALS: BP 116/50
[2025-07-28 05:29] LABS: Triglycerides 65 mg/dL (30-160)
--- NOTE | 2025-07-28 05:38 | NUR ---
ABNORMAL VITALS DOCUMENTATION/RECHECK. PT'S SPO2 NOTED TO BE CHARTED 87% AND 75%. DISCUSSED WITH FUSING MACHINE OPERATOR, READING DID NOT HAVE GOOD PLETH AND PT'S FINGERS HAVE BEEN NOTED TO BE COLD WITH INTERVENTIONS PERFORMED TO GET GOOD READINGS T/O SHIFT. UPON RECHECK WITH RELIABLE PLETH PT O2 NOTED TO BE 92%, 87% AND 75% DOCUMENTATION ARE QUESTIONABLE READINGS TO THIS RN. BP ALSO NOTED TO BE 130/35, PT REPORTEDLY TALKS WITH HANDS AND MOVED DURING BP READING. UPON RECHECK NOTED 116/50.
--- NOTE | 2025-07-28 05:47 | NUR ---
SHIFT SUMMARY NOC. PT POD 6 FOR RIGHT HEMICOLECTOMY AND BOWEL RESECTION. MIDLINE INCISION IS C/D/I WITH WOUND VAC IN PLACE. PT MEDICATED FOR PAIN WITH SOME REPORTED RELIEF. PT STATES MEDS ONLY "TAKE THE EDGE OFF", FLACC SCORE NOTED TO BE IMPROVED AFTER MEDICATION IS ADMINISTERED. PT VOIDING URINE AND TOLERATING FULL LIQUIDS. TELEMETRY INTACT WITH NO ACUTE REPORTED EVENTS. PT REQUESTED TO ONLY TAKE 15 UNITS OF ORDERED 20 UNITS OF LONG ACTING INSULIN. PT VERBALIZED CONCERNS FOR LOW CHEM BG. EDUCATION PROVIDED TPN IS RUNNING. PT REFUSED BOWEL CARE MEDS AT HS D/T FREQUENT BMS ON DAY SHIFT. PT A/O X4 BUT FORGETFUL AT TIMES DURING NIGHT. CALL LIGHT IN REACH.
[2025-07-28 07:19] VITALS: BP 143/40
--- NOTE | 2025-07-28 10:30 | NUR ---
PALLIATIVE CARE VISIT: MET WITH PT THIS MORNING TO CHECK ON SYMPTOM MANAGEMENT. PT REPORTS HIS PAIN IS MANAGED TO HIS SATISFACTION. HE TAKES MORPHINE ER 100 MG IN AM AND 130 MG ER AT BEDTIME. PT STATES HE TAKES TYLENOL FOR BREAKTHROUGH PAIN. PT REPORTS NAUSEA IS MANAGED. HE ATE BREAKFAST OF PANCAKES AND SCRAMBLED EGGS THIS MORNING AND TOLERATED WELL. PT REPORTS DIARRHEA BUT HE IS OKAY WITH THIS HE KNOWS IT IS HIS BODY ADJUSTING AND HE IS PASSING STOOL. DISCUSSED COMPLETING AN ADVANCE DIRECTIVE WITH PT. HE STATES HE HAS ONE ON FILE WITH DR. HO. HE GAVE VERBAL PERMISSION TO REQUEST A COPY TO BE FAXED TO [facility]. PT DENIES ANY OTHER CONCERNS AT THIS TIME. FAXED REQUEST TO FOR POLST/AD. WILL SEND TO MEDICAL RECORDS ONCE RECEIVED.
[2025-07-28 14:10] VITALS: BP 148/44
--- NOTE | 2025-07-28 15:47 | NUR ---
POLST AND ADVANCE DIRECTIVE RECEIVED FROM DR. HO OFFICE. POLST STATES DNR LIMITED. SENT POLST TO [facility] AND MEDICAL RECORDS.
[2025-07-28] MEDS ORDERED: Insulin Human Lispro 100 Units/ML 3ML Syringe SC SCH (20:00)
[2025-07-28 20:24] VITALS: BP 154/62
[2025-07-28 23:53] VITALS: BP 164/60
[2025-07-29 04:34] VITALS: BP 145/71
[2025-07-29 07:15] LABS: Hematocrit 22.0 % (37.0-53.0); Hemoglobin 7.1 g/dL (13.5-17.5); Mean Corpuscular HGB Conc 32.3 g/dL (31.5-36.5); Mean Corpuscular Volume 89 fL (80-100); NRBC ABSOLUTE 0.00 K/mm3 (0.00-0.02); NRBC Auto 0.0 /100 WBC (0.0-0.2); Platelet Count 430 K/mm3 (150-400); RDW Coefficient Variation 17.4 % (11.7-14.2); RDW Standard Deviation 53.8 fL (35.1-46.3)
[2025-07-29 07:25] VITALS: BP 120/57
--- NOTE | 2025-07-29 07:28 | NUR ---
SHIFT SUMMARY NOC. PT POD 7 FOR RIGHT HEMICOLECTOMY AND BOWEL RESECTION. MIDLINE INCISION IS C/D/I WITH WOUND VAC IN PLACE. PT MEDICATED FOR PAIN PER EMAR WITH SOME REPORTED RELIEF. PT VOIDING URINE AND HAVING FREQUENT LOOSE STOOLS, PT DECLINED BOWEL CARE ORDERS AT HS. TELEMETRY REPORTED NO ACUTE EVENTS AND WAS NSR IN 60S. PT REPORTED DECREASED APPETITE THIS SHIFT AND STATED HE FEELS HE "OVER DID IT WITH FOOD YESTERDAY. DENIES N/V. CHEM BGS STABLE WITH NO COVERAGE NEEDED. PT A/OX4 BUT HAD AN EVENT OF FORGETFULNESS, FORGOT WHERE HE WAS AND GOT TANGLED IN CORDS WHILE TRANSFERING TO [facility]. PT VERBALIZED EMBARASSMENT FROM EPISODE AND HAS HAD DEPRESSED, WITHDRAWN, AFFECT SINCE. PT HAS BED ALARM/TAB ALARM SET FOR SAFETY. CALL LIGHT IN REACH.
[2025-07-29 07:30] LABS: Anion Gap 7.0 mmol/L (3-11); Blood Urea Nitrogen 38.0 mg/dL (8-24); CO2, Blood 30.0 mmol/L (21-32); Calcium, Blood 8.1 mg/dL (8.5-10.1); Chloride, Blood 101.0 mmol/L (98-108); Creatinine, Blood 1.0 mg/dL (0.60-1.20); Glucose, Blood 121.0 mg/dL (70-99); Potassium, Blood 4.9 mmol/L (3.5-5.5); Sodium, Blood 133.0 mmol/L (136-145)
[2025-07-29 15:59] VITALS: BP 147/47
--- NOTE | 2025-07-29 17:26 | NUR ---
End of shift summary: Patient is alert and oriented x4; pleasant and cooperative with care. Patient with no acute changes this shift and has denied CP or pressure, SOB, N/V and mild pain today. Patietn with wound vac to abdomen and order to remove; will attempt for 3rd time to remove if patient allows (multiple interupptions d/t food/fluid/bathroom ect.). All medications administered per EMAR. Patient bed in lowest postion and call light within patient reach. Will continue to monitor until next shift nurse arrives and report is given.
[2025-07-29 19:30] VITALS: BP 116/63
[2025-07-30 04:00] VITALS: BP 107/68
--- NOTE | 2025-07-30 05:05 | NUR ---
SHIFT SUMMARY NO ACUTE EVENTS OVERNIGHT. PT AMBULATING TO RESTROOM WITH STANDBY ASSIST. PT TOLERATING PO INTAKE AND MEDICATIONS. PT EAGER TO DISCHARGE TODAY.
[2025-07-30 06:04] LABS: Hematocrit 21.4 % (37.0-53.0); Hemoglobin 7.0 g/dL (13.5-17.5); Mean Corpuscular HGB Conc 32.7 g/dL (31.5-36.5); Mean Corpuscular Volume 92 fL (80-100); NRBC ABSOLUTE 0.00 K/mm3 (0.00-0.02); NRBC Auto 0.0 /100 WBC (0.0-0.2); Platelet Count 425 K/mm3 (150-400); RDW Coefficient Variation 17.3 % (11.7-14.2); RDW Standard Deviation 55.9 fL (35.1-46.3)
[2025-07-30 07:38] VITALS: BP 131/40
--- NOTE | 2025-07-30 09:20 | NUR ---
BLOOD DRAW VIA POWERGLIDE WITHOUT DIFFICULTY. T+C SENT TO LAB.
[2025-07-30] MEDS ORDERED: NS 500 ML IV SCH (09:55)
[2025-07-30 11:10] VITALS: BP 156/43
[2025-07-30 11:32] VITALS: BP 132/37
[2025-07-30 12:30] VITALS: BP 128/63
[2025-07-30] MEDS ORDERED: METO50ER PO (13:01)
[2025-07-30] MEDS ORDERED: DOCU100 PO (13:02)
[2025-07-30] MEDS ORDERED: MELATONIN5 M1 PO (13:02)
[2025-07-30] MEDS ORDERED: NARCAN4 M1 INH (13:03)
[2025-07-30] MEDS ORDERED: MIRALAX1714 PO (13:04)
[2025-07-30] MEDS ORDERED: SENNA LAXATIVE8.6 MG PO (13:06)
[2025-07-30] MEDS ORDERED: TRAZ100 PO (13:07)
[2025-07-30 13:57] VITALS: BP 134/40
--- NOTE | 2025-07-30 14:28 | NUR ---
PRBCS COMPLETE PT TOLERATED WELL. H&H DRAWN. OKAY TO PROCEED W/DC PER DR BROWN.
[2025-07-30 14:32] LABS: Hematocrit 23.4 % (37.0-53.0); Hemoglobin 7.9 g/dL (13.5-17.5)
--- NOTE | 2025-07-30 15:23 | NUR ---
discharging PRBCS COMPLETE. H&H COMPLETE. PICC LINE DC'D BY DIMAS CONCEPCION. REVIEWED DC INSTRUCTIONS W/PT; VERBALIZED UNDERSTANDING. DC PAPERWORK SIGNED. PT DRESSED AND AWAITING RIDE.
--- NOTE | 2025-07-30 15:46 | NUR ---
DISCHARGED PT LEFT UNIT IN , HAD POSSESSIONS AND DC PAPERWORK, ACCOMPANIED BY RIDE HOME.
== END 2025-07-30 15:50 | disposition home or self-care (01) | DRG 329 ==
LOC: ER 10:47 → MEDS 10:48 → ER 10:48 → ERHOLD 10:48 → MEDS 10:48 → EDBEDREQ 19:44 → MEDS 20:07 → SURS 07-16 11:43 → MEDS 07-16 11:44 → SURS 07-22 15:42 → MEDS 07-22 15:42 → SURS 07-22 15:42
PROVIDERS: Emergency Medicine; Internal Medicine; Student in an Organized Health Care Education/Training Program; Surgery; ADMIT Internal Medicine
PROC: 0D9670Z Drainage of Stomach with Drainage Device, Via Natural or Artificial Opening (ICD-10-PCS; 2025-07-17)
PROC: 3E0336Z Introduction of Nutritional Substance into Peripheral Vein, Percutaneous Approach (ICD-10-PCS; 2025-07-18)
PROC: 3E03329 Introduction of Other Anti-infective into Peripheral Vein, Percutaneous Approach (ICD-10-PCS; 2025-07-18)
PROC: 0DTF0ZZ Resection of Right Large Intestine, Open Approach (ICD-10-PCS; 2025-07-22)
PROC: 0DBA0ZZ Excision of Jejunum, Open Approach (ICD-10-PCS; principal; 2025-07-22 14:00)
PROC: 02HV33Z Insertion of Infusion Device into Superior Vena Cava, Percutaneous Approach (ICD-10-PCS; 2025-07-23)
DX: K56.609 Unspecified intestinal obstruction, unspecified as to partial versus complete obstruction (principal); K55.029 Acute infarction of small intestine, extent unspecified; C17.1 Malignant neoplasm of jejunum; E87.1 Hypo-osmolality and hyponatremia; N17.9 Acute kidney failure, unspecified; I48.92 Unspecified atrial flutter; E44.0 Moderate protein-calorie malnutrition; C18.3 Malignant neoplasm of hepatic flexure; K55.9 Vascular disorder of intestine, unspecified; E03.9 Hypothyroidism, unspecified; K21.9 Gastro-esophageal reflux disease without esophagitis; E78.5 Hyperlipidemia, unspecified; E86.0 Dehydration; N18.2 Chronic kidney disease, stage 2 (mild); Z66 Do not resuscitate; E11.22 Type 2 diabetes mellitus with diabetic chronic kidney disease; I12.9 Hypertensive chronic kidney disease with stage 1 through stage 4 chronic kidney disease, or unspecified chronic kidney disease; R54 Age-related physical debility; I25.10 Atherosclerotic heart disease of native coronary artery without angina pectoris; E11.42 Type 2 diabetes mellitus with diabetic polyneuropathy; E11.51 Type 2 diabetes mellitus with diabetic peripheral angiopathy without gangrene; D63.1 Anemia in chronic kidney disease; Z68.20 Body mass index [BMI] 20.0-20.9, adult; D50.9 Iron deficiency anemia, unspecified; K59.00 Constipation, unspecified; I95.9 Hypotension, unspecified; E87.6 Hypokalemia; E83.39 Other disorders of phosphorus metabolism; E11.65 Type 2 diabetes mellitus with hyperglycemia; I48.0 Paroxysmal atrial fibrillation; Z87.891 Personal history of nicotine dependence; Z79.4 Long term (current) use of insulin; Z79.02 Long term (current) use of antithrombotics/antiplatelets; Z79.890 Hormone replacement therapy; Z79.899 Other long term (current) drug therapy; Z88.1 Allergy status to other antibiotic agents; Z88.8 Allergy status to other drugs, medicaments and biological substances
CPT/HCPCS: 36415; 36569; 71045; 71250; 74176; 74250; 80048; 80053; 80069; 81001; 82378; 82728; 82947; 83036; 83540; 83550; 83735; 83880; 84100; 84295; 84439; 84443; 84478; 85014; 85018; 85025; 85027; 86301; 86304; 86850; 86900; 86901; 86923; 87086; 88309; 93005; 93010; 93306; 94762; 96361; 96374; 96375; 96376; 99285-25; A9270; C1751; G0378; J0295; J1100; J1171; J1650; J1750; J1815; J1885; J2270; J2405; J2470; J2765; J3010; J3411; J3475; J3480; J7030; J7040; J7050; J7120; J7799; P9016; P9045

== ENCOUNTER 2025-08-03 14:50 | Observation (INO) | payer MEDICARE ==
[~2025-08-03] VITALS: Ht 172.7 cm; Wt 63.5 kg
[~2025-08-03 14:50] MED LIST: ADALAT CC PO; ALPHA LIPOIC A600 MG PO; ATEN50 PO; B COMPLEX FORM0.4 MG PO; CYCL10 PO; DOCU100 PO; FERROUS GLUCON324 M2 PO; HUMALOG KW100 UNIT/1; HYDACE10B PO; INSULIN DE100 UNIT/1; LISI20 PO; MELATONIN5 M1 PO; METO50ER PO; MIRALAX1714 PO; MORP30ER; MS CONTIN100 MG PO; MULVITA PO; NARCAN4 M1 INH; NIFE90ER PO; NORTRIPTYLINE H2512 PO; PANTOPRAZOLE SO40 M2 PO; PLAVIX75 MG PO; PSYLLIUM FIBER0.4 GM PO; SENNA LAXATIVE8.6 MG PO; SPIRONOLACTONE50 MG PO; SYNTHROID100 M14 PO; Simvastatin40 MG PO; TRAZ100 PO
[2025-08-03] MEDS ORDERED: Ondansetron HCl 2 MG / ML 2ML Vial IV ONE (16:30)
[2025-08-03] MEDS ORDERED: Morphine Sulfate 4 MG/1 ML Injection IV ONE (16:30)
[2025-08-03] MEDS ORDERED: HYDROmorphone HCl/Pf 1MG SYR IV ONE ×2 (16:55→21:00)
[2025-08-03 17:12] LABS: BASOPHILS ABSOLUTE AUTO 0.15 K/mm3 (0.00-0.23); BASOPHILS PERCENT AUTO 1 % (0-2); EOSINOPHILS ABSOLUTE AUTO 0.01 K/mm3 (0.00-0.68); EOSINOPHILS PERCENT AUTO 0 % (0-6); Hematocrit 33.7 % (37.0-53.0); Hemoglobin 11.1 g/dL (13.5-17.5); IMMATURE GRAN ABSOLUTE AUTO 0.12 K/mm3 (0.00-0.10); IMMATURE GRAN PERCENT AUTO 1 % (0-1); LYMPHOCYTES ABSOLUTE AUTO 0.60 K/mm3 (0.84-5.20); LYMPHOCYTES PERCENT AUTO 3 % (21-46); MONOCYTES ABSOLUTE AUTO 0.67 K/mm3 (0.16-1.47); MONOCYTES PERCENT AUTO 3 % (4-13); Mean Corpuscular HGB Conc 32.9 g/dL (31.5-36.5); Mean Corpuscular Volume 88 fL (80-100); NEUTROPHILS ABSOLUTE AUTO 22.18 K/mm3 (1.96-9.15); NEUTROPHILS PERCENT AUTO 94 % (41-73); NRBC ABSOLUTE 0.00 K/mm3 (0.00-0.02); NRBC Auto 0.0 /100 WBC (0.0-0.2); Platelet Count 644 K/mm3 (150-400); RDW Coefficient Variation 16.4 % (11.7-14.2); RDW Standard Deviation 52.4 fL (35.1-46.3)
[2025-08-03 17:23] LABS: Magnesium, Blood 1.7 mg/dL (1.6-2.4)
[2025-08-03 17:25] LABS: Alanine Aminotransfer (ALT/SGP 93.0 U/L (12-78); Albumin, Blood 2.2 g/dL (3.4-5.0); Albumin/Globulin Ratio 0.6 (0.8-1.8); Anion Gap 9.0 mmol/L (3-11); Aspartate Aminotrans (AST/SGOT 74.0 U/L (12-37); Bilirubin, Total 0.3 mg/dL (0.1-1.0); Blood Urea Nitrogen 23.0 mg/dL (8-24); CO2, Blood 30.0 mmol/L (21-32); Calcium, Blood 8.6 mg/dL (8.5-10.1); Chloride, Blood 99.0 mmol/L (98-108); Creatinine, Blood 1.04 mg/dL (0.60-1.20); Globulin, Blood 3.8 g/dL (2.2-4.0); Glucose, Blood 51.0 mg/dL (70-99); Potassium, Blood 4.5 mmol/L (3.5-5.5); Sodium, Blood 133.0 mmol/L (136-145); Total Protein, Blood 6.0 g/dL (6.4-8.2)
[2025-08-03] MEDS ORDERED: Vancomycin (Pharmacy Consult) IV PRN (17:50)
[2025-08-03] MEDS ORDERED: Piperacillin/Tazobactam Sod 4.5 GM in NS 100 ML IV ONE (17:50)
[2025-08-03 20:15] VITALS: BP 143/69
[2025-08-03] MEDS ORDERED: Ondansetron HCl 2 MG / ML 2ML Vial IV PRN (20:25)
[2025-08-03] MEDS ORDERED: LORazepam 2 MG/ML 1ML Injection IV PRN (20:25)
[2025-08-03] MEDS ORDERED: HYDROmorphone HCl/Pf 1MG SYR IV PRN (20:25)
[2025-08-03] MEDS ORDERED: Metoclopramide HCl 5MG / ML 2ML Vial IV PRN (20:30)
[2025-08-03] MEDS ORDERED: Atropine Sulfate 1% Opth Soln 2ML BTL SL PRN (20:30)
[2025-08-03] MEDS ORDERED: Morphine Sulfate 10 MG/ML 1MLSYR IV PRN (20:30)
--- NOTE | 2025-08-03 22:37 | NUR ---
ADMIT NOTE HANDOFF RECIEVED FROM [employer]. PT ARRIVED TO FLOOR VIA GURNEY. PT ORIENTED TO UNIT. PERSONAL POSSESSIONS WITH PT. CALL BUTTON WITHIN REACH. PT MEDICATED FOR ANXIETY AND NAUSEA. PAIN MEDICATION ADMINISTERED IN ER JUST PREVIOUS TO ARRIVAL ON THIS FLOOR. NG TUBE IN PLACE ON LOW INTERMITTENT SUCTION. PT PROVIDED WITH ORANGE JUICE. COMFORT CARE IN PLACE.
--- NOTE | 2025-08-04 04:12 | NUR ---
SHIFT SUMMARY ADMITTED FOR BOWEL PERFORATION THIS SHIFT. DNR CODE. ON COMFORT CARE. NG TUBE IN PLACE ON LOW INTERMITTENT SUCTION. ANXIETY AND NAUSEA MEDICATION GIVEN THIS SHIFT WITH GOOD EFFECT. HE IS ON RA, A&O X4. HE IS ABLE TO MAKE HIS NEEDS KNOWN. PALLIATIVE CARE IS CONSULTED. HX OF COLON CANCER W/METS. RECENT HX OF TUMOR REMOVAL, BOWEL RESECTION/LAPAROTOMY PROCEDURE. FENTANYL PATCH IN PLACE.
--- NOTE | 2025-08-04 17:12 | NUR ---
SHIFT SUMMARY PT AOX4 WHEN AWAKE, RESTING MOST OF THE AFTERNOON. REPOSITIONED THROUGHOUT THE SHIFT, CALLS TO MAKE HIS NEEDS KNOWN WHEN AWAKE. FRIENDS AT THE BS. NG TUBE PATENT AND DRAINING. PT APPEARS COMFORTABLE. NO ORAL INTAKE THIS SHIFT.
[2025-08-04] MEDS ORDERED: MORPHINE SULFATE 100 MG PO SCH (21:00)
--- NOTE | 2025-08-05 05:35 | NUR ---
SHIFT SUMMARY COMFORT CARE CONTINUES. PT MEDICATED WITH DILAUDID AND ATIVAN PER EMAR. NGT TO LIS DRAINING SMALL AMOUNTS OF GREEN/BROWN DRAINAGE. TUBE IRRIGATED TO ASSURE NGT FUNCTION. PT MOSTLY RESTING WITH EYES CLOSED, BUT DID WAKE UP TO VOID AND DRINK SOME WATER. ASSISTED PT WITH POSITION CHANGES DURING THE NIGHT.
--- NOTE | 2025-08-05 09:03 | NUR ---
PALLIATIVE CARE NOTE: CONSULT RECEIVED FOR CANCER, END OF LIFE/COMFORT CARE. REVIEWED MEDICAL RECORD. PT IS CURRENTLY ON COMFORT CARE. POLST ON FILE STATES DNR, SELECTIVE TREATMENT.
--- NOTE | 2025-08-05 09:49 | NUR ---
rounded on pt. he was asleep at the time. discussed case with bsrn. she reported that when he awakens he is requesting pain medication. no signs at this time of discomfort. discussed medication with bsrn. no needs at this time.
[2025-08-05] MEDS ORDERED: Morphine Sulfate 20 MG/1ML 1 ML Oral Syringe SL PRN (10:40)
--- NOTE | 2025-08-05 10:40 | NUR ---
ADDED ORAL MEDICATION, DISCUSSED WITH BSRN. WILL WORK TOWARDS TRANSITIONING OFF IV MEDICATION FOR SYMPTOM MANAGMENT.
--- NOTE | 2025-08-05 15:33 | NUR ---
PT'S NEPHEW ASHLEY CONTACTED REGARDING DIAGNOSIS AND PROGNOSIS. HE THANKED PC RN FOR THE UPDATE AND IS PLANNING ON TRAVELING TO THE AREA. HE STATES HE IS THE ONLY LIVING RELATIVE OF [place], AND WILL BE RESPONSIBLE FOR TAKING CARE OF THE PATIENT'S ESTATE ONCE HE PASSES AWAY. PT APPEARS COMFORTABLE, IS NO LONGER WAKING.
--- NOTE | 2025-08-05 18:03 | NUR ---
SHIFT SUMMARY PT ALERT TO VERBAL STIMULI, DRANK SOME WATER THIS AM. NG TUBE IN PLACE FOR COMFORT. BRIEFS CHANGED NEEDED. PT ATTEMPTING TO GET OOB WHEN NEEDING TO URINATE, URINAL PROVIDED. MINIMAL CONVERSATION. WHEN HE WAKES UP FROM SLEEP, HE STATES HE IS IN PAIN. MEDICATED PER THE EMAR. PALLIATVE CARE ONBOARD. FRIENDS AT THE BS THIS SHIFT. REPOSITIONED THROUGHOUT THE SHIFT. RESPIRATIONS SHALLOW. CALL LIGHT WITHIN REACH, BED LOCKED AND IN THE LOWEST POSITION. WILL REPORT TO ONCOMING NURSE.
--- NOTE | 2025-08-06 05:36 | NUR ---
SHIFT SUMMARY PT IS A&OX2-4, PLEASANT AND COOPERATIVE WITH CARE. PT TAKES AWHILE TO RESPOND WHEN ASKED QUESTIONS, OFTEN NEEDING TO UTILIZE THE FLACC SCALE TO RECOGNIZE PAIN/DISTRESS. PT MEDICATED FOR PAIN AND ANXIETY T/O SHIFT. NGT REMAINS IN PLACE FOR COMFORT AND IS REMOVING BROWN/GREEN FLUID. NO ACUTE CHANGES THIS SHIFT. PT RESTED T/O SHIFT, BED IN THE LOWEST POSITION, AND CALL LIGHT WIHTIN REACH.
--- NOTE | 2025-08-06 17:28 | NUR ---
SHIFT SUMMARY PT IS A/O TO SELF. NO ACUTE EVENTS THROUGHOUT THIS SHIFT. PT MEDICATED WITH ATIVAN AND ROXANOL PER NOV. NG TUBE TO LOW INTERMITTENT SUCTION FOR COMFORT WITH DARK BROWN/GREEN DRAINAGE. FRIENDS AT BEDSIDE THIS AFTERNOON.
--- NOTE | 2025-08-07 04:17 | NUR ---
PATIENT IS ON COMFORT CARE. PATIENT MEDICATED FOR PAIN AND ANXIETY-SEE EMAR. INDWELLING HOSKINS IS IN PLACE-ORDER OBTAINED FROM DR. GREENE. NGT HOOKED UP TO L.I.S. PATIENT HAS PILLOW SUPPORTS IN PLACE. ORAL CARE PROVIDED. BED IN LOW POSITION WITH WHEELS LOCKED. CALL LIGHT WITHIN REACH
--- NOTE | 2025-08-07 17:30 | NUR ---
SHIFT SUMMARY PT RESPONDING ONLY TO PAINFUL STUMILI AT THIS TIME. MEDICATED PER MAR FOR PAIN AND ANXIETY. HOSKINS PATENT AND DRAINING CLEAR, YELLOW URINE TO GRAVITY. NG TUBE IN PLACE DRAINING DARK BROWN COLORED OUTPUT. NEIGHBOR, KIM, AT BEDSIDE THIS AFTERNOON.
--- NOTE | 2025-08-08 04:45 | NUR ---
PATIENT IS ON COMFORT CARE. HOSKINS IN PLACE-DRAINING TO GRAVITY. NGT IN PLACE HOOKED UP TO L.I.S. PATIENT MEDICATION FOR PAIN AND AIR HUNGER. PATIENT TURNED WITH PILLOW SUPPORTS. ORAL CARE PROVIDED. BED IN LOW POSITION WITH WHEELS LOCKED. CALL LIGHT WITHIN REACH. BED ALARM ON
--- NOTE | 2025-08-08 05:21 | NUR ---
PT AT 0503 WITNESSED BY THIS RN. ASSESSMENT CONFIRMS - NO RESPONSE TO PAIN, NO RESPIRATIONS, NO HEART BEAT, NO PUPILLARY RESPONSE. FRIEND, KIM [phone] NOTIFIED. NEPHEW, ASHLEY [phone] NOTIFIED. ASHLEY STATES HE IS UNSURE OF EXACT WISHES OF PT, HE BELIEVES PT WANTS TO DONATE HIS BODY TO [facility], POSSIBLY AT [facility], BUT STATES THE INFORMATION IS AT HIS UNCLE'S HOME. ASHLEY STATES HE IS ON HIS WAY, DRIVE TIME IS 6.5-7 HOURS.
--- NOTE | 2025-08-08 06:02 | NUR ---
SECOND RN VERIFICATION OF PATIENT . PATIENT 502- ASSESSMENT CONFIRMS - NO RESPONSE TO PAIN, NO RESPIRATIONS, NO HEART BEAT, NO PUPILLARY RESPONE. DR. GREENE NOTIFIED. PATIENT WILL BE RELEASED TO [facility]. SILAS CALDERON RN NOTIFIED FRIEND KIM AND NEPHEW ASHLEY.
== END 2025-08-08 05:03 ==
LOC: ER 14:50 → MEDS 14:51
PROVIDERS: Emergency Medicine; ADMIT Student in an Organized Health Care Education/Training Program
DX: K63.1 Perforation of intestine (nontraumatic) (principal); C18.9 Malignant neoplasm of colon, unspecified; E11.649 Type 2 diabetes mellitus with hypoglycemia without coma; I48.92 Unspecified atrial flutter; D64.9 Anemia, unspecified; I12.9 Hypertensive chronic kidney disease with stage 1 through stage 4 chronic kidney disease, or unspecified chronic kidney disease; E11.22 Type 2 diabetes mellitus with diabetic chronic kidney disease; N18.9 Chronic kidney disease, unspecified; I25.10 Atherosclerotic heart disease of native coronary artery without angina pectoris; K21.9 Gastro-esophageal reflux disease without esophagitis; E78.5 Hyperlipidemia, unspecified; Z66 Do not resuscitate; Z90.49 Acquired absence of other specified parts of digestive tract; Z88.8 Allergy status to other drugs, medicaments and biological substances; Z79.899 Other long term (current) drug therapy; Z79.890 Hormone replacement therapy
CPT/HCPCS: 36415; 51702; 74177; 80053; 83605; 83690; 83735; 85025; 87040; 87077; 93005; 93010; 96365; 96375; 96376; 99285-25; A9270; G0378; J1171; J2060; J2270; J2405; J2543; J3373; J7050; J7120; Q9967